=== PATIENT | female | born 1955 | race African-American/Black ===

== ENCOUNTER 2018-06-23 19:37 | Inpatient (IN) | payer MEDICARE, MEDICAID ==
[~2018-06-23] VITALS: Ht 172.7 cm; Wt 78.5 kg
[~2018-06-23 19:37] MED LIST: Singular PO; TRAZADONE PO; advair HHN; albuterol HHN; lasix PO; potassium PO
[2018-06-23] MEDS ORDERED: IPRATROPIUM BROMIDE (0.02%) 0.5MG/2.5ML NEB HHN ONE (22:45)
[2018-06-23] MEDS ORDERED: PREDNISONE 20MG TABLET PO ONE (22:45)
[2018-06-23] MEDS ORDERED: SODIUM CHLORIDE 0.9% 1000ML BAG (SEPSIS BOLUS) IV ONE (22:45)
[2018-06-23] MEDS ORDERED: ALBUTEROL (0.5%) 2.5MG/0.5ML NEB HHN ONE (22:45)
[2018-06-23] MEDS ORDERED: CEFTRIAXONE 1 G PREMIX 50 ML IV ONE (22:45)
[2018-06-23 23:04] LABS: BASOPHILS % 0.9 % (0.0-2.0); EOSINOPHILS % 1.8 % (0.0-5.0); HEMOGLOBIN. 13.9 g/dL (12.0-16.0); LYMPHOCYTES % 25.5 % (20.0-50.0); MEAN CORPUSCULAR HEMOGLOBIN 29.4 pg (28.0-32.0); MEAN CORPUSCULAR VOLUME 89.1 fL (81.0-99.0); MEAN PLATELET VOLUME 8.6 fl (7.4-10.4); NEUTROPHILS % 64.8 % (40.0-76.0); PLATELET 340 x1000/uL (130-400); RED BLOOD CELL COUNT 4.72 mill/uL (4.2-5.4); RED CELL DISTRIBUTION WIDTH 14.5 % (11.6-14.6)
[2018-06-23 23:11] LABS: CHLORIDE 103 mEq/L (98-107)
[2018-06-24] MEDS ORDERED: HYDROCODONE/ACETAMINOPHEN 10/325MG TABLET PO PRN (07:00)
[2018-06-24] MEDS ORDERED: MAGNESIUM/ALUMINUM HYDROXIDE/SIMETHICONE 30ML UDC PO PRN (07:00)
[2018-06-24] MEDS ORDERED: ACETAMINOPHEN 325MG TABLET PO PRN (07:00)
[2018-06-24] MEDS ORDERED: DIPHENHYDRAMINE 50MG/ML VIAL IV PRN (07:00)
[2018-06-24] MEDS ORDERED: HYDRALAZINE 20MG/ML VIAL IV PRN (07:00)
[2018-06-24] MEDS ORDERED: GUAIFENESIN 200MG/10ML SUGAR FREE UDC PO PRN (07:00)
[2018-06-24] MEDS ORDERED: ONDANSETRON HCL 4MG/2ML INJ IV PRN (07:00)
[2018-06-24] MEDS ORDERED: DOCUSATE SODIUM 100MG CAPSULE PO PRN (07:00)
[2018-06-24] MEDS ORDERED: CLONIDINE 0.1MG TABLET PO PRN (07:00)
[2018-06-24] MEDS ORDERED: NA PHOS,M-B/NA PHOS,DI-BA ENEMA 118ML PR PRN (07:00)
[2018-06-24 11:27] VITALS: BP 132/71
[2018-06-24] MEDS ORDERED: HYDROMORPHONE HCL/PF 2MG/ML CPJ IV PRN (11:29)
[2018-06-24] MEDS ORDERED: LORAZEPAM 2MG/ML CPJ IV PRN (11:31)
[2018-06-24] MEDS ORDERED: FLAX100031 PO (13:50)
[2018-06-24] MEDS: SODIUM CHLORIDE 0.9% INJ 3ML FLUSH IVF SCH ×2 (14:00→21:29)
[2018-06-24] MEDS ORDERED: OMEG1050 PO (14:11)
[2018-06-24] MEDS ORDERED: FLUT15.88 BOTHNSTRLS (14:11)
[2018-06-24] MEDS ORDERED: HYDR453.3 TP (14:11)
[2018-06-24] MEDS ORDERED: CYAN200017 PO (14:39)
[2018-06-24] MEDS ORDERED: OMEG-79 MT (14:39)
[2018-06-24] MEDS ORDERED: OMEG-95 MT (14:39)
[2018-06-24] MEDS ORDERED: MULT-1116 PO (14:39)
[2018-06-24] MEDS ORDERED: ALBU18HF2 IH (14:39)
[2018-06-24] MEDS ORDERED: CHOL100044 MT (14:39)
[2018-06-24] MEDS ORDERED: GARL400T13 PO (14:39)
[2018-06-24] MEDS ORDERED: ASCO-339 MT (14:39)
[2018-06-24] MEDS ORDERED: DIPH25CA6 MT (14:39)
[2018-06-24] MEDS ORDERED: PREG150C MT (14:39)
[2018-06-24] MEDS ORDERED: UBID50TA3 PO (14:39)
[2018-06-24] MEDS ORDERED: PROM6.254 MT (14:50)
[2018-06-24] MEDS ORDERED: HYDR-4009 MT (14:50)
[2018-06-24] MEDS ORDERED: PROM6.2514 MT (14:50)
[2018-06-24] MEDS: ENOXAPARIN 40MG/0.4ML SYR SUBCUT SCH (15:08)
[2018-06-24 16:00] VITALS: BP 124/64
[2018-06-24 17:27] LABS: CREATINE KINASE 120 IU/L (26-192)
[2018-06-24 17:28] LABS: CREATINE KINASE MB FRACTION < 1.0 ng/mL (0.5-3.6)
[2018-06-24] MEDS ORDERED: INSULIN LISPRO 100 UNITS/ML SUBCUT SCH (17:40)
[2018-06-24] MEDS ORDERED: DEXTROSE 50% WATER 50ML SYRINGE IV PRN (17:45)
[2018-06-24] MEDS: INSULIN LISPRO 100 UNITS/ML SUBCUT SCH (18:22)
[2018-06-24 20:00] VITALS: BP 118/49
[2018-06-25] VITALS: BP 140/54
[2018-06-25 01:31] LABS: CREATINE KINASE 89 IU/L (26-192)
[2018-06-25 01:32] LABS: CREATINE KINASE MB FRACTION < 1.0 ng/mL (0.5-3.6)
[2018-06-25] MEDS: IPRATROPIUM/ALBUTEROL 0.5-3(2.5)MG/3ML NEB INH PRN ×2 (01:35→09:33)
[2018-06-25 04:00] VITALS: BP 101/54
[2018-06-25] MEDS: SODIUM CHLORIDE 0.9% INJ 3ML FLUSH IVF SCH ×2 (06:12→13:13)
[2018-06-25 06:31] LABS: BASOPHILS % 0.5 % (0.0-2.0); EOSINOPHILS % 1.8 % (0.0-5.0); HEMATOCRIT. 34.6 % (36.0-48.0); HEMOGLOBIN. 11.5 g/dL (12.0-16.0); LYMPHOCYTES % 32.4 % (20.0-50.0); MEAN CORPUSCULAR HEMOGLOBIN 29.4 pg (28.0-32.0); MEAN CORPUSCULAR VOLUME 88.8 fL (81.0-99.0); MEAN PLATELET VOLUME 8.3 fl (7.4-10.4); MONOCYTES % 7.7 % (2.0-8.0); NEUTROPHILS % 57.6 % (40.0-76.0); PLATELET 305 x1000/uL (130-400); RED CELL DISTRIBUTION WIDTH 14.1 % (11.6-14.6)
[2018-06-25 06:33] LABS: CHLORIDE 108 mEq/L (98-107)
[2018-06-25 06:41] LABS: LDL CHOLESTEROL 89 mg/dL (5-100)
[2018-06-25 06:42] LABS: HDL CHOLESTEROL 37 mg/dL (40-59); T4 FREE 0.89 ng/dL (0.76-1.46)
[2018-06-25] MEDS: BLOOD SUGAR DIAGNOSTIC STRIP TEST SCH ×3 (07:10→17:10)
[2018-06-25] MEDS ORDERED: INSULIN LISPRO 100 UNITS/ML SUBCUT SCH (07:40)
[2018-06-25] MEDS: INSULIN LISPRO 100 UNITS/ML SUBCUT SCH ×3 (07:40→17:28)
[2018-06-25 08:00] VITALS: BP 97/49
[2018-06-25 12:00] VITALS: BP 99/46
[2018-06-25] MEDS: ENOXAPARIN 40MG/0.4ML SYR SUBCUT SCH (13:39)
[2018-06-25 15:04] VITALS: BP 99/46
[2018-06-25 16:00] VITALS: BP 102/54
== END 2018-06-25 18:15 | disposition home or self-care (01) | DRG 313 ==
LOC: ER 19:37 → 8WST 06-24 02:23 → EDBEDREQTM 06-24 02:27 → EDBEDREQDT 06-24 02:27 → EDBEDREQSVC 06-24 02:27 → EDBEDREQ 06-24 02:27 → ENRESERV 06-24 07:22 → CANRESERV 06-24 07:22 → ENRESERV 06-24 09:44
PROVIDERS: ADMIT Internal Medicine; ATTEND Internal Medicine
DX: R07.89 Other chest pain (principal); J45.909 Unspecified asthma, uncomplicated; I10 Essential (primary) hypertension; M19.90 Unspecified osteoarthritis, unspecified site; G43.909 Migraine, unspecified, not intractable, without status migrainosus; Z85.42 Personal history of malignant neoplasm of other parts of uterus; Z90.710 Acquired absence of both cervix and uterus; Z88.6 Allergy status to analgesic agent; Z88.8 Allergy status to other drugs, medicaments and biological substances; Z79.899 Other long term (current) drug therapy
CPT/HCPCS: 36415; 71045; 80061; 82550; 82553; 82962; 83605; 83880; 84145; 84439; 84443; 84484; 87804; 93005; 94640; 99285; J0696; J1650; J1815; J7030; J7050; J7512; J7611; J7620